=== PATIENT | male | born 1985 | race Caucasian/White ===

== ENCOUNTER 2017-11-30 13:46 | Emergency (ER) | payer MEDICAID ==
[2017-11-30 13:51] VITALS: TEMP 97.6
[2017-11-30] MEDS ORDERED: ONDANSETRON 4 MG ODT ONE (14:03)
[2017-11-30] MEDS: ONDANSETRON 4 MG ODT BU ONE (14:13)
[2017-11-30] MEDS ORDERED: PROMETHAZINE HYDROCHLORIDE 25 MG/ML SOL ONE (14:22)
[2017-11-30] MEDS: PROMETHAZINE HYDROCHLORIDE 25 MG/ML SOL IM ONE (14:25)
[2017-11-30 14:34] LABS: CALCIUM 9.4 mg/dl (8.5-10.1); POTASSIUM 3.9 mMol/L (3.5-5.1)
[2017-11-30 16:06] VITALS: RESP 20
[2017-11-30 16:07] VITALS: BP 134/78; PULSE 87; O2SAT 97
== END 2017-11-30 15:40 | disposition home or self-care (01) | DRG 392 ==
LOC: ED 13:46
DX: R11.2 Nausea with vomiting, unspecified (principal)
CPT/HCPCS: 36415; 80048; 99283; J2550; A9270-GY